=== PATIENT | female | born 1985 | race Caucasian/White ===

== ENCOUNTER 2021-03-27 03:34 | Emergency (ER) | payer MEDICAID ==
[~2021-03-27] VITALS: Ht 160 cm; Wt 64.0 kg
[2021-03-27 03:37] VITALS: BP 136/99
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
== END 2021-03-27 05:31 | disposition home or self-care (01) ==
LOC: ED 05:20
DX: N93.8 Other specified abnormal uterine and vaginal bleeding (principal); R10.9 Unspecified abdominal pain; F17.200 Nicotine dependence, unspecified, uncomplicated
CPT/HCPCS: 99281